=== PATIENT | male | born 1985 | race Caucasian/White ===

== ENCOUNTER 2020-02-29 13:04 | Emergency (ER) | payer SELFPAY ==
[~2020-02-29] VITALS: Ht 198.1 cm; Wt 129.5 kg
[2020-02-29 13:11] VITALS: BP 106/74; TEMP 97.2
[2020-02-29] MEDS ORDERED: AMOXICILLIN 8751 TAB PO (13:46)
[2020-02-29 14:47] VITALS: PULSE 61
== END 2020-02-29 14:47 | disposition home or self-care (01) ==
LOC: COL.ER 13:04
DX: S61.511A Laceration without foreign body of right wrist, initial encounter (principal); S61.551A Open bite of right wrist, initial encounter; F17.210 Nicotine dependence, cigarettes, uncomplicated; Z23 Encounter for immunization; W54.0XXA Bitten by dog, initial encounter; Y92.009 Unspecified place in unspecified non-institutional (private) residence as the place of occurrence of the external cause